=== PATIENT | male | born 1950 | race Caucasian/White ===

== ENCOUNTER 2021-05-02 07:33 | Day surgery (SDC) | payer OTHER ==
[2021-04-27 09:52] LABS: Absolute Lymphocytes (CBC) 0.9 K/uL (0.7-4.9); Hematocrit 43.6 % (39.6-49.0); Lymphocytes % 14.5 % (15.3-44.8); MPV 8.8 fL (7.6-11.3); RBC Red Blood Cell Count 4.64 M/uL (4.33-5.43)
[2021-04-27 09:57] LABS: Protime INR 0.97
[2021-04-27 10:14] LABS: Potassium 4.2 mmol/L (3.5-5.1)
--- NOTE | 2021-04-27 10:21 | RAD REPORT ---
EXAM DESCRIPTION: RAD - Chest Pa And Lat (2 Views) - 04/27/2021 10:14 am CLINICAL HISTORY: pre op pending TURP Chest pain. COMPARISON: No comparisons FINDINGS: The lungs are clear. The heart is normal in size. No displaced fractures. IMPRESSION: No acute or concerning finding suspected.
[2021-05-02] MEDS ORDERED: Ringers Lactate 1,000 ML IV ONE (08:07)
[2021-05-02] MEDS ORDERED: AMPICILLIN SODIUM 2 GM in NA CHLORIDE 0.9% 100 ML IVPB ONE (09:00)
[2021-05-02] MEDS ORDERED: Gentamicin Inj 200 MG in NA CHLORIDE 0.9% 100 ML IVPB ONE (09:00)
[2021-05-02] MEDS ORDERED: LIDOCAINE 1% MPF 5 ML VIAL ONE (09:41)
[2021-05-02] MEDS ORDERED: propofoL 200 MG/20 ML VIAL IV ONE (09:41)
[2021-05-02] MEDS ORDERED: FENTANYL CITR 100 MCG/2 ML ONE ×2 (09:41→10:20)
[2021-05-02] MEDS ORDERED: NS 0.9% VIAL 10 ML ONE (10:14)
[2021-05-02] MEDS ORDERED: EPHEDRINE SULF 50 MG/ML VIAL ONE (10:14)
[2021-05-02] MEDS ORDERED: KETOROLAC 30 MG/ML INJ ONE (10:15)
[2021-05-02] MEDS ORDERED: ONDANSETRON 4 MG/2 ML VIAL ONE (10:16)
[2021-05-02] MEDS ORDERED: CODEINE 30MG/APAP 300MG TAB PO PRN (11:51)
[2021-05-02] MEDS ORDERED: PHENAZOPYRIDINE 100MG TAB PO ONE ×2 (11:51→12:24)
[2021-05-02] MEDS ORDERED: OPIUM/BELLADONNA SUPPOS (30-16.2 MG) PR ONE ×2 (11:51→11:55)
[2021-05-02] MEDS ORDERED: CODEINE 30MG/APAP 300MG TAB ONE (12:24)
--- NOTE | 2021-05-02 12:44 | OP ---
Date of Procedure: 05/02/2021 Surgeon: ANAMARIA DYSON Preoperative Diagnoses: 1.Benign prostatic hypertrophy with obstruction and lower urinary tract symptoms. 2.Multiple bladder diverticula and cellules. 3.Trabeculated detrusor. Postoperative Diagnoses: 1.Benign prostatic hypertrophy with obstruction and lower urinary tract symptoms. 2.Multiple bladder diverticula and cellules. 3.Trabeculated detrusor. Principal Procedure: Bipolar transurethral resection of the prostate. Indication For Procedure: Mr. Pederson is a 71-year-old gentleman, who presented to the urology clinic w ith obstructive lower urinary symptoms and underwent cystoscopic evaluation revealing the presence of a massive intravesically projecting median lobe along with lateral lobar hypertrophy causing obstruc tion. His bladder had become markedly trabeculated and there were cellules and diverticula in each l ateral wall as a result. No papillary mucosal lesions, foreign bodies, or stones were noted througho ut. He was counseled on the recommendation for bipolar transurethral resection of the prostate in or cindy to improve his obstructive symptoms. Procedure In Detail: The patient was consented in the preoperative holding area before being transfe rred to the operative suite where general anesthesia was induced. He was given ampicillin and gentam icin IV, antimicrobial prophylaxis. Pneumoboots were provided for DVT prophylaxis. He was placed in the lithotomy position, padded and secured to the table appropriately. His genitalia were prepped u sing Hibiclens and draped in standard fashion. The case was begun using urethral sounds to dilate th e meatus and fossa navicularis to 30-Nicar[place]uan. Then, using the visual obturator and the 26-[place] bipo lar resectoscope, his urethra was traversed and bladder entered. As had previously been described, t he bladder was markedly trabeculated with numerous cellules and a large diverticulum present in each lateral wall. I surveyed each of the cellules and diverticula and again no mucosal lesions were note d within and no stones. As a result, I turned my attention to the prostate and began the resection b y identifying the right ureteral orifice and resecting the median lobe that was abutting it. Similar ly, identifying the left ureteral orifice and creating a trough on that side, once this was done, I w as then able to resect the remainder of the intravesically projecting median lobe down to the level o f the bladder neck. I then completed the resection of the median bar down to the level of the verumo ntanum. I continued the resection to involve the left lateral lobe all the way through to the anteri or and any intravesically projecting component of the anterior lateral lobes. I then resected the ri ght lateral lobe all the way to the apex, taking care to not surpass the verumontanum. I removed all prostate chips from within the bladder, using an Efficient Frontier evacuator, and a careful search for bleeding was undertaken. Any bleeding vessels were fulgurated using the bipolar electrode, and his bladder wa s decompressed. Additional resection as necessary was performed to ensure a smooth fossa throughout with no residual adenoma. In fact, on the left lateral wall of the prostate, the capsule had become visualized. With all prostate chips then carefully removed and his bladder completely decompressed, any remaining venous ooze was fulgurated until the fossa was completely hemostatic with the bladder d ecompressed and no fluid within. As a result, I then backfilled his bladder and searched each bladde r diverticulum for any prostate chips, removing them as necessary, and when I was confident that no p rostate chips remained within the bladder, and that there was no ongoing bleeding, I then removed the resectoscope and placed a 24-[place] 3-way Colby catheter into his bladder with ease. 50 cc of steri le water was placed in the balloon. The patient was taken out of the lithotomy position, the cathete r was placed to continuous bladder irrigation using normal saline at a slow drip. The returning effl ux was completely clear. The catheter was placed to moderate traction, and the patient was awakened from general anesthesia. He was transferred to a stretcher and then to the recovery room in good con dition. Complications: None. Discharge Disposition: He should follow up in urology clinic for a voiding trial on perhaps or Saturday of this week, alternatively next Saturday would be adequate. He will be discharged with a p rescription for Bactrim Double Strength tablets twice daily for the next 7 days and Tylenol with Code ine for pain management. Subsequent followup should be established in about 3 months to assess inter johanna progress, and if any pathologic findings of note are made, we may see him back sooner. JULEE/LEATHA Voice ID: [id number] Report ID: [id number]
[2021-05-02 14:45] VITALS: TEMP 97.8; O2SAT 100
[2021-05-02 14:54] VITALS: BP 146/82
== END 2021-05-02 14:18 | disposition home or self-care (01) ==
LOC: OR 07:33
PROVIDERS: ATTEND Urology
PROC: 0VT08ZZ Resection of Prostate, Via Natural or Artificial Opening Endoscopic (ICD-10-PCS; principal; 2021-05-02 08:30)
DX: N40.1 Benign prostatic hyperplasia with lower urinary tract symptoms (principal); N32.3 Diverticulum of bladder; R97.20 Elevated prostate specific antigen [PSA]; E29.1 Testicular hypofunction; Z80.42 Family history of malignant neoplasm of prostate; Z20.822 Contact with and (suspected) exposure to COVID-19
CPT/HCPCS: 93005; 87088; 85025; 87086; 80048; 36415; 85610; 88305; 71046; 52601; U0002; J2704; J1580; J3010 ×2; J7120; J2405; J0290

== ENCOUNTER → 2022-01-03 | Day surgery (SDC) | payer OTHER ==
--- NOTE | 2022-01-03 11:59 | RAD REPORT ---
EXAM DESCRIPTION: US - Guided FNA Non Breast - 01/03/2022 10:29 am CLINICAL HISTORY: E04.1 COMPARISON: No comparisons FINDINGS: Preoperative diagnosis: Dominant left thyroid nodule. Post operative diagnosis: Same. Conscious Sedation: None Fluoroscopy time: None Contrast used: None Estimated blood loss: Minimal Specimens:4 fine-needle aspirates The left neck was prepped and draped in the usual sterile fashion. 1% lidocaine was infiltrated into the subcutaneous tissues for local anesthesia. Real time ultrasound scanning of the left thyroid lobe demonstrated the suspicious nodule. Under ultrasound guidance, using a 25 gauge needle, 4 specimens were obtained. IMPRESSION: Technically successful ultrasound-guided fine-needle aspiration of a suspicious left thy roid nodule.
== END ==
LOC: FNA 08:00
PROVIDERS: ATTEND Otolaryngology
PROC: 0GBG3ZX Excision of Left Thyroid Gland Lobe, Percutaneous Approach, Diagnostic (ICD-10-PCS; principal; 2022-01-03)
DX: E07.89 Other specified disorders of thyroid (principal); E04.1 Nontoxic single thyroid nodule
CPT/HCPCS: 88162

== ENCOUNTER 2024-09-15 05:35 | Day surgery (SDC) | payer OTHER ==
[2024-09-09 10:22] LABS: Absolute Basophils 0.2 K/uL (0-0.5); Absolute Eosinophils 0.4 K/uL (0-0.5); Absolute Lymphocytes (CBC) 1.2 K/uL (0.7-4.9); Absolute Monocytes 0.9 K/uL (0.1-1.3); Absolute Neutrophil 4.8 K/uL (1.8-8.0); Basophils % 2.4 % (0-1.3); Eosinophils % 5.3 % (0-4.4); Hematocrit 40.6 % (39.6-49.0); Lymphocytes % 15.8 % (15.3-44.8); MCH 32.5 pg (27.0-35.0); MCHC 34.5 g/dL (32.0-36.0); MCV 94.3 fL (80-100); MPV 9.1 fL (7.6-11.3); Neutrophils % 64.5 % (41.7-73.7); Platelets 230 thou/uL (152-406); Red Cell Distribution Width 13.5 % (12.1-15.2)
[2024-09-09 10:23] LABS: Specific Gravity 1.023 (1.005-1.030); Urine Bilirubin NEGATIVE (Negative); Urine Blood Negative (Negative); Urine Clarity Clear (Clear); Urine Glucose NEGATIVE (Negative); Urine Ketones NEGATIVE (Negative); Urine Microscopic Reflex YN NO UMIC; Urine Nitrite NEGATIVE (Negative); Urine Protein NEGATIVE (Negative); Urine Urobilinogen Normal (Normal); Urine pH 5.5 (5.0-7.0)
[2024-09-09 10:25] LABS: Urine Color Light-Yellow (Yellow)
[2024-09-09 10:43] LABS: Albumin 3.8 g/dL (3.4-5.0); Albumin/Globulin Ratio 1.1 (1.1-1.8); Anion Gap 10.3 mEq/L (5.0-15.0); Bilirubin Total 0.6 mg/dL (0.2-1.0); Globulin 3.4 g/dL (2.3-3.5); PT Prothrombin Time 11.4 SECONDS (10-13.0); PTT, Activated Partial Thromb 30.3 SECONDS (27.2-37.4); Potassium 4.3 mEq/L (3.5-5.1); Protein, Total 7.2 g/dL (6.4-8.2)
--- NOTE | 2024-09-09 11:39 | RAD REPORT ---
EXAM: Chest Pa And Lat (2 Views) HISTORY: 74 years Male Pre-op pending total knee arthroplasty COMPARISON: 04/27/2021 FINDINGS: LUNGS/PLEURA: The lungs are clear. No pleural effusions or pneumothorax. No pulmonary edema. CARDIAC/MEDIASTINUM: The cardiac silhouette is within normal limits. UPPER ABDOMEN: No significant abnormality. BONES: No acute abnormality. LINES/TUBES/OTHER: N/A IMPRESSION: No evidence of acute cardiopulmonary disease.
--- NOTE | 2024-09-09 12:12 | EKG ---
Test Date: 2024-09-09 Test Time: 10:03:15 Media Relations Coordinator: SILVANO MEASUREMENT RESULTS: Intervals: Rate: 53 VA: 170 QRSD: 100 QT: 468 QTc: 439 [place]: P: 53 VA: 170 QRS: -26 T: 0 INTERPRETIVE STATEMENTS: Sinus bradycardia ST & T wave abnormality, consider lateral ischemia Abnormal ECG Compared to ECG 04/27/2021 09:25:13 ST (T wave) deviation now present Possible ischemia now present Sinus rhythm no longer present Left anterior fascicular block no longer present Electronically Signed On 09-09-24 12:12:10 CDT by Steve Mendez
[2024-09-15] MEDS: GABAPENTIN 100 MG CAP ONE (05:56)
[2024-09-15] MEDS: Oxycodone HCl/Acetaminophen 5/325 MG TAB ONE (05:56)
[2024-09-15] MEDS: CELECOXIB 100 MG CAPSULE ONE (05:57)
[2024-09-15] MEDS ORDERED: KETAMINE HCL IN 0.9 % NACL 50 MG/5 ML SYRINGE IV ONE (05:57)
[2024-09-15] MEDS ORDERED: MIDAZOLAM HCL 2 MG/2 ML INJ ONE (05:57)
[2024-09-15] MEDS ORDERED: LIDOCAINE 2% MPF 5 ML VIAL ONE (05:57)
[2024-09-15] MEDS ORDERED: FENTANYL CITR 100 MCG/2 ML ONE (05:57)
[2024-09-15] MEDS ORDERED: propofoL 200 MG/20 ML VIAL IV ONE (05:57)
[2024-09-15] MEDS: ACETAMINOPHEN 500 MG TAB ONE (05:59)
[2024-09-15] MEDS: DEXMEDETOMIDINE HCL 200 MCG/2 ML VIAL ONE (06:03)
[2024-09-15] MEDS: MAGNESIUM SULFATE 1 gm IVPB 1 GM/100 ML BAG IV ONE (06:03)
[2024-09-15] MEDS: Ringers Lactate 1,000 ML IV ONE ×2 (06:05→08:57)
[2024-09-15] MEDS: LIDOCAINE 1% MPF 5 ML VIAL ONE (06:15)
[2024-09-15] MEDS: BUPIVACAINE 0.25% PF 30 ML VIAL ONE (06:16)
[2024-09-15] MEDS: dexAMETHasone 4 MG/ML VIAL ONE (06:16)
[2024-09-15] MEDS: EPINEPHRINE 1 MG/ML VIAL ONE (06:16)
[2024-09-15] MEDS: TRANEXAMIC ACID 1,000 MG/10 ML VIAL IV ONE (06:59)
[2024-09-15] MEDS ORDERED: GLYCOPYRROLATE 0.2 MG/ML SYR ONE (07:18)
[2024-09-15] MEDS ORDERED: EPHEDRINE SULF 50 MG/ML VIAL ONE (07:24)
[2024-09-15] MEDS: CEFAZOLIN SODIUM 2 GM/VIAL ONE (07:30)
[2024-09-15] MEDS ORDERED: DOCUSATE NA 100 MG CAP PO PRN (10:11)
[2024-09-15] MEDS ORDERED: ONDANSETRON 4 MG/2 ML VIAL IV PRN (10:11)
--- NOTE | 2024-09-15 10:16 | P.BOP ---
Preoperative diagnosis: right knee djd Postoperative diagnosis: same Primary procedure: right TKA Estimated blood loss: 100ccs Anesthesia: General Transferred to: Recovery Room Condition: Good
--- NOTE | 2024-09-15 12:11 | OP ---
Date of Procedure: 09/15/2024 Surgeon: Mu Weaver MD Preoperative Diagnosis: Right knee severe degenerative joint disease. Postoperative Diagnosis: Right knee severe degenerative joint disease. Procedure: Right total knee arthroplasty using the Person[employer] System from [employer]. Estimated Blood Loss: 100 cc. Complications: There were no complications. Indications For Operation: Mr. Pederson is a 74-year-old male who has been troubled with debilitating kn ee pain in his right knee for some time. This persisted despite conservative measures, including inj ections, medications, and other conservative measures. Risks, benefits, and alternatives to total kn ee arthroplasty were discussed with him. He states he understands things as presented and wishes to proceed. Description Of Procedure: The patient was taken to the operating room, placed in supine position. G eneral anesthesia was easily obtained by the anesthesia staff. He did have a block prior to the OR i n the recovery room. Following this, a well-padded tourniquet was placed on the superior right thigh . Right lower extremity was then prepped and draped in usual sterile fashion for the procedure. Aft er this, the leg was then elevated and gently exsanguinated with Lavon wrap and the knee was bent. Elliott rniquet was raised. A standard anterior incision was taken down carefully through skin and soft tiss ues. Meticulous hemostasis being maintained using Bovie electrocautery. This leads down to the appr opriate level, which was exploited and the extensor mechanism was exposed. There was a glendy made at the superomedial aspect of the patella and a standard medial parapatellar arthrotomy was performed. The medial meniscus and anterior cruciate ligament were debrided, and the patella was everted. Knee was bent. Lateral meniscus was removed as well as posterior cruciate ligament. Some osteophytes wer e removed using a rongeur and an intramedullary alignment guide was then placed in standard fashion. The distal femur was then cut and then appropriately sized with remainder of the distal cuts being p erformed. Any loose bone was removed. After this, attention was then turned to the tibia and the ti flaca was then measured and cut. After this, it appeared to be somewhat tight in both flexion and exte nsion, and it was again cut, slightly more tibia removed. After this, this was then trialed. It was found to be well balanced in both flexion and extension. Attention was turned to the patella. Some osteophytes were removed. Patella was calipered and cut. The trial patella was then placed. It ap peared to glide appropriately. After this was performed, attention was then turned back to the femur . The lag holes were then placed to establish position. Also, the tibia was marked and punched. Al l surfaces were then prepped for cementation, and the final components with the exception of the tria l polyethylene were then cemented with removal of any unsupported cement. Following this, the knee w as brought through range of motion. Patella appeared to glide excellently and appeared to be balance d in flexion and extension, and the trial polyethylene was removed. Any unsupported cement was remov ed and the final polyethylene was placed. It was again irrigated and searched for any unsupported ce ment, and trialed with flexion and extension, appeared to be doing well. After this, the wound was a gain irrigated and the extensor mechanism was closed in a watertight fashion using Ethibond sutures. It was again irrigated. Skin was closed using 2-0 Vicryl sutures and then closed using genny. Th e patient was then placed in a very well-padded sterile dressing, awakened, and taken to recovery in good condition. No complications. SE/MODL Voice ID: [id number] Report ID: [id number]
[2024-09-15 13:00] VITALS: BMI 29.7
[2024-09-15] MEDS: CEFAZOLIN 1 GM in NA CHLORIDE 0.9% 50 ML IVPB SCH (16:54)
[2024-09-15] MEDS: HYDROCODONE/APAP 7.5/325 MG TAB PO PRN (20:01)
[2024-09-15 20:57] VITALS: O2SAT 95
[2024-09-16 01:40] LABS: Sqamous Epithelial <5 /HPF (None Seen); Urine Bacteria None Seen /HPF (<20); Urine Bilirubin NEGATIVE (Negative); Urine Blood Trace (Negative); Urine Clarity Clear (Clear); Urine Color Light-Yellow (Yellow); Urine Glucose NEGATIVE (Negative); Urine Ketones TRACE (Negative); Urine Micro Reflex YN NO BILL MICROSCOPIC; Urine Mucus Slight /HPF (None Seen); Urine Nitrite NEGATIVE (Negative); Urine Protein NEGATIVE (Negative); Urine RBC <5 /HPF (None Seen); Urine Urobilinogen Normal (Normal); Urine WBC <5 /HPF (<5); Urine pH 5.5 (5.0-7.0)
[2024-09-16] MEDS: ENOXAPARIN 30 MG/0.3 ML SQ SCH (05:58)
[2024-09-16] MEDS ORDERED: LEFLUNOMIDE 10 MG PO PRN (06:12)
[2024-09-16 07:23] LABS: Hematocrit 38.5 % (39.6-49.0)
[2024-09-16 08:52] VITALS: BP 126/81; TEMP 97.5
[2024-09-16] MEDS: HYDROXYCHLOROQUINE 200MG TAB PO SCH (08:57)
[2024-09-16] MEDS: AMLODIPINE 5 MG TAB PO SCH (08:57)
[2024-09-16] MEDS: carvediloL 3.125 MG TAB PO SCH (08:57)
[2024-09-16] MEDS: hydroCHLOROthiazide 12.5 MG CAP PO SCH (08:57)
[2024-09-16] MEDS: SULFASALAZINE 500 MG E.C. TAB PO SCH (08:58)
[2024-09-16] MEDS ORDERED: VALSARTAN 160 MG TAB FT SCH (09:00)
--- NOTE | 2024-09-16 09:34 | P.CNS ---
Date of Consult: 09/16/24 Reason for Consult: Medical management Requesting Physician: Mu Weaver Chief Complaint: Right knee pain History of Present Illness: Patient with history of hypertension, hyperlipidemia was brought to the operating room for right knee replacement surgery for severe degenerative joint disease. He underwent operative management on 09/15 and been doing well postoperatively. His H&H is stable. Hospitalist services was consulted for medical management of his chronic conditions. Allergies No Known Allergies Allergy (Verified 09/15/24 06:35) Home Medications: Acetaminophen [Tylenol Extra Strength] 500 mg PO PRN PRN 04/27/21 Amlodipine [Norvasc*] 10 mg PO DAILY 04/27/21 Carvedilol [Coreg] 3.125 mg PO BID 04/27/21 Irbesartan 300 mg PO DAILY 04/27/21 Leflunomide [Arava] 20 mg PO DAILY PRN 04/27/21 sulfaSALAzine [Sulfasalazine] 500 mg PO BID 04/27/21 Atorvastatin Calcium [Lipitor] 10 mg PO BEDTIME 09/09/24 Hydroxychloroquine [Plaquenil*] 200 mg PO DAILY 09/09/24 hydroCHLOROthiazide [Hydrochlorothiazide] 12.5 mg PO DAILY 09/09/24 - Past Medical/Surgical History Diabetic: No -: Hypertension -: Hyperlipidemia -: Left tibial plateau surgery -: Right total knee replacement Psychosocial/ Personal History: Lives at home with family and - Social History Alcohol use: No CD- Drugs: No Caffeine use: No Place of Residence: Home Review of Systems 10-point ROS is otherwise unremarkable Musculoskeletal: Leg Pain Physical Examination Temp Pulse Resp BP Pulse Ox 97.5 F 74 14 126/81 98 09/16/24 08:00 09/16/24 08:00 09/16/24 08:00 09/16/24 08:00 09/16/24 08:00 General: Alert, In no apparent distress, Oriented x3 HEENT: Atraumatic, PERRLA Neck: Supple, 2+ carotid pulse no bruit, No LAD Respiratory: Clear to auscultation bilaterally, Normal air movement Cardiovascular: Regular rate/rhythm, Normal S1 S2 Gastrointestinal: Normal bowel sounds, No tenderness Musculoskeletal: No tenderness, Other (Right knee with dressing in place, right leg P ROM currently) Integumentary: No rashes Neurological: Normal gait, Normal speech, Normal affect Laboratory Data (last 24 hrs) 09/16/24 07:11 Hgb 13.0 L Hct 38.5 L Conclusions/Impression: Assessment: Severe right degenerative joint disease status post right TKA Hypertension Hyperlipidemia Plan: Severe right degenerative joint disease status post right TKA Management per Ortho PT to work with patient again today, did well yesterday Currently in passive range of motion Hypertension Hyperlipidemia Home medications continued DVT PPX: Lovenox Code status: Full Critical Care: No Time Spent Managing Pts care (In Minutes): 36
[2024-09-16] MEDS ORDERED: ATORVASTATIN 10 MG TAB PO SCH (21:00)
== END 2024-09-16 10:42 | disposition home health service (06) ==
LOC: PRE 05:35 → 2ND 11:13 → OR 09-16 10:42
PROVIDERS: ATTEND Orthopaedic Surgery
PROC: 0SRC0J9 Replacement of Right Knee Joint with Synthetic Substitute, Cemented, Open Approach (ICD-10-PCS; principal; 2024-09-15 07:00)
DX: M17.11 Unilateral primary osteoarthritis, right knee (principal); I10 Essential (primary) hypertension; E78.00 Pure hypercholesterolemia, unspecified
CPT/HCPCS: 93005; 85025; 81001; 36415 ×2; 85610; 88305; 88311; 85730; 85018; 85014; 81003; 80053; 71046; 97116 ×2; 97139; 97161; 94010 ×2; 27447; J3490; C1776; J3475; J2704; J1100; J2003 ×2; J1650; J2250; J3010; J0171; J7120 ×2; J0690 ×3